=== PATIENT | male | born 1985 | race African-American/Black ===

== ENCOUNTER 2017-10-24 09:23 | Emergency (ER) | payer MEDICAID ==
[~2017-10-24] VITALS: Ht 182.9 cm; Wt 139.0 kg
[~2017-10-24 09:23] MED LIST: NORC5TAB PO
[2017-10-24 09:25] VITALS: BP 134/83; PULSE 81; RESP 18; TEMP 98.3; O2SAT 97
--- NOTE | 2017-10-24 09:50 | PD ---
HPI Chief Complaint: Medical Clearance Time Seen by Provider: 09:39 Travel History International Travel<30 days: No Contact w/Intl Traveler<30days: No Traveled to known affect area: No History of Present Illness HPI 32-year-old male presents to the ED with MRI sling from his orthopedist requesting him MRI done today. He reports he went to [facility] and was told his insurance would not cover the MRI therefore he came here. He reports improving pain to the left ankle. Denies any altered sensation or increasing pain of the ankle and foot. PFSH Past Medical History Medical History: Denies Significant Hx Diminished Hearing: No Social History Alcohol Use: No Tobacco Use: No Substance Use: No Allergies-Medications (Allergen,Severity, Reaction): Coded Allergies: No Known Allergies (Unverified , 10/24/17) Reported Meds & Prescriptions Reported Meds & Active Scripts Active [place] (Hydrocodone-Acetaminophen) 5 Mg-325 Mg Tab 1 Tab PO Q6H PRN Review of Systems Except as stated in HPI: all other systems reviewed are Neg Physical Exam Narrative GENERAL: Alert and well-appearing 32-year-old male. Lying comfortably on stretcher. SKIN: Warm and dry. HEAD: Normocephalic. EYES: No injection or drainage. NECK: Supple MUSCULOSKELETAL: No cyanosis, or edema. Left leg: Posterior short leg splint in place. Cap refill intact. Can freely wiggle the toes. Data Data Last Documented VS Vital Signs Date Time Temp Pulse Resp B/P (MAP) Pulse Ox O2 Delivery O2 Flow Rate FiO2 10/24/17 09:25 98.3 81 18 134/83 (100) 97 MDM Medical Decision Making Medical Screen Exam Complete: Yes Emergency Medical Condition: Yes Differential Diagnosis Achilles tendon injury, medical screening exam, other Narrative Course 32-year-old male here with a prescription for outpatient MRI to rule out Achilles tendon tear versus complete rupture. He was seen by his orthopedist this morning. He was confused as to where to obtain the MRI therefore came to the ED. he was instructed to call his insurance company and verify where MRIs could be obtained. He verbalizes understanding. A medical screening exam was performed: At the time of evaluation the presenting medical condition was determined not to be of an emergent nature. The patient was given the option of receiving additional care, but declined. Patient was given options for additional community resources from which to obtain care. The Patient Has Been advised to seek medical attention for their presenting complaint. The patient has been advised to return to the ER at any time if an emergent condition develops. Diagnosis Primary Impression: Encounter for medical screening examination Referrals: Orthopedist Additional Instructions: Call your insurance company and verify we can obtain the MRI Disposition: 01 DISCHARGE HOME Condition: Stable Liat Wheeler Oct 24, 2017 09:50
== END 2017-10-24 10:00 | disposition left against medical advice (07) ==
LOC: PHEFT 09:23
DX: M25.572 Pain in left ankle and joints of left foot (principal)
CPT/HCPCS: 99281